=== PATIENT | male | born 1985 | race Two or more races ===

== ENCOUNTER → 2016-12-07 | Outpatient (CLI) | payer OTHER ==
[2016-12-07 14:04] LABS: ANION GAP 14 (5-19); BLOOD UREA NITROGEN 18 mg/dL (7-20); CALCIUM 10.4 mg/dL (8.4-10.2); CARBON DIOXIDE 27 mmol/L (22-30); CHLORIDE 98 mmol/L (98-107); CREATININE RESULT 1.22 mg/dL (0.52-1.25); GLUCOSE 83 mg/dL (75-110); SODIUM 138.5 mmol/L (137-145)
[2016-12-07 15:35] LABS: URINE CREATININE 44.6 mg/dL (24-392)
[2016-12-07 15:38] LABS: CREATININE 1.22 mg/dL (0.52-1.25)
[2016-12-08 11:38] LABS: CREATININE URINE 44.3 mg/dL (Not Estab.)
[2016-12-09 06:17] LABS: PROTEIN TOTAL UR 24HR 294.9 mg/24 hr (30.0-150.0)
== END ==
LOC: OD 12:29
PROVIDERS: ATTEND Internal Medicine Nephrology
DX: R80.9 Proteinuria, unspecified (principal); N18.1 Chronic kidney disease, stage 1
CPT/HCPCS: 36415; 80048; 82570; 82575; 84156